=== PATIENT | male | born 1940 | race Caucasian/White ===

== ENCOUNTER 2017-03-03 07:52 | Day surgery (SDC) | payer MEDICARE, BC ==
[~2017-03-03] VITALS: Ht 182.9 cm
--- NOTE | 2017-03-04 07:52 | OR ---
ADMIT: 03/03/2017 RM/LOC: [facility] MR#: [id number] [address] [address] Operative/Delivery Room Report SEX: M AGE: 76 : 1940 SURGERY DATE: 03/03/2017 SURGEON: Marvin Sharma MD VIOLIN RESTORER: None. PREPROCEDURE DIAGNOSES: 1. Cervical disc degeneration. 2. Cervical neuritis. POSTPROCEDURE DIAGNOSES: 1. Cervical disc degeneration. 2. Cervical neuritis. PROCEDURE PERFORMED: Cervical epidural steroid injection C7-T1 level. INDICATIONS FOR PROCEDURE: The patient is pleasant gentleman with history of chronic neck pain with radicular symptoms, comes here for planned cervical epidural steroid injection. ANESTHESIA: Local without sedation. ESTIMATED BLOOD LOSS: Zero. COMPLICATIONS: None immediately evident. DESCRIPTION OF PROCEDURE: After the patient was seen in the preoperative area, vitals signs were taken. Prior to the procedure, the risks, benefits, and alternative therapies were discussed at length. Patient consent was obtained and updated. The patient was taken to the fluoroscopy suite and placed on the fluoroscopy table in the prone position. Pressure points were padded to comfort, monitors applied, and a timeout performed. Once adequate anesthesia of the skin over the cervical spine was achieved, the spine was prepped with ChloraPrep and draped in a sterile fashion. Under ADMIT: 03/03/2017 RM/LOC: [facility] MR#: [id number] [address] [place] [id number] [place] [id number] Operative/Delivery Room Report SEX: M AGE: 76 : 1940 fluoroscopic guidance, a 20-gauge 3.5-inch Tuohy needle was passed through the anesthetized skin to the C7-T1 epidural space using a continuous loss of resistance to saline technique. The needle placement in the epidural space was confirmed by loss of resistance to saline and then injection of 2 mL of Isovue 300, which showed a clear epidural pattern with spread of contrast as high as C2. At this time, 4 mL of solution containing 40 mg of methylprednisolone and preservative-free normal saline were injected. The patient tolerated the procedure well and was discharged to postanesthesia recovery where he continued to recover without difficulty. PLAN: Discharge instructions were given, followup scheduled. The patient was discharged home with a certified driver examiner. Marvin Sharma MD/ yash JOB #: [id number] CC: Marvin Sharma, Attending Physician Daniela Woody, Family Physician
--- NOTE | 2017-03-04 07:52 | OR ---
ADMIT: 03/03/2017 RM/LOC: [facility] MR#: [id number] [address] [address] [place] [id number] Operative/Delivery Room Report SEX: M AGE: 76 : 1940 SURGERY DATE: 03/03/2017 SURGEON: Marvin Sharma MD TRAVEL AGENCY MANAGER: None. PREPROCEDURE DIAGNOSES: 1. Lumbar disc degeneration. 2. Lumbosacral neuritis. POSTPROCEDURE DIAGNOSES: 1. Lumbar disc degeneration. 2. Lumbosacral neuritis. PROCEDURE PERFORMED: L5-S1 interlaminar epidural steroid injection. INDICATIONS FOR PROCEDURE: The patient is pleasant gentleman with history of chronic back pain with radicular symptoms, comes here for planned lumbar epidural steroid injection ANESTHESIA: Local without sedation. ESTIMATED BLOOD LOSS: Zero. COMPLICATIONS: None immediately evident. DESCRIPTION OF PROCEDURE: After the patient was seen in the preoperative area, vitals signs were taken. Prior to the procedure, the risks, benefits, and alternative therapies were discussed at length. Patient consent was obtained and updated. The patient was taken to the fluoroscopy suite and placed on the fluoroscopy table in the prone position. Pressure points were padded to comfort, monitors applied, and a timeout performed. Fluoroscopy was brought in. The patient was sterilely prepped and draped in the usual manner with ChloraPrep solution, and 1% lidocaine was used to anesthetize the appropriate needle entry site. Utilizing a midline approach, ADMIT: 03/03/2017 RM/LOC: [facility] MR#: [id number] [address] [address] [place] [id number] [place] [address] Operative/Delivery Room Report SEX: M AGE: 76 : 1940 continuous loss of resistance technique with preservative-free normal saline and intermittent fluoroscopic guidance, the posterior epidural space was easily entered. Once the epidural space had been entered through L5-S1 the patient was injected with 2 mL of Isovue-300 and outlining of the posterior epidural space was observed with no evidence of vascular uptake and intrathecal migration. Next, a solution consisting of 10 mL of preservative- free normal saline and 80 mg of Depo-Medrol was injected. The needle was withdrawn. The patient was escorted back to the preoperative area and observed for a period of time. PLAN: Discharge instructions were given, followup scheduled. The patient was discharged home with a river driver. Marvin Sharma MD/ yash JOB #: [id number] CC: Marvin Sharma, Attending Physician Daniela Woody, Family Physician
== END 2017-03-03 09:57 | disposition home or self-care (01) ==
LOC: SSS 07:52
PROC: B01BYZZ Fluoroscopy of Spinal Cord using Other Contrast (ICD-10-PCS; principal; 2017-03-03)
PROC: 3E0S33Z Introduction of Anti-inflammatory into Epidural Space, Percutaneous Approach (ICD-10-PCS; principal; 2017-03-03)
PROC: 3E0S3BZ Introduction of Anesthetic Agent into Epidural Space, Percutaneous Approach (ICD-10-PCS; principal; 2017-03-03)
DX: G89.29 Other chronic pain (principal); M50.13 Cervical disc disorder with radiculopathy, cervicothoracic region; M51.17 Intervertebral disc disorders with radiculopathy, lumbosacral region; M51.26 Other intervertebral disc displacement, lumbar region; M48.07 Spinal stenosis, lumbosacral region; Z79.899 Other long term (current) drug therapy; Z87.891 Personal history of nicotine dependence